=== PATIENT | male | born 1985 | race Caucasian/White ===

== ENCOUNTER 2018-09-09 13:54 | Emergency (ER) | payer SELFPAY ==
[~2018-09-09] VITALS: Ht 175.3 cm; Wt 85.5 kg
[2018-09-09 13:59] VITALS: Ht 175.3 cm; Wt 85.5 kg
[2018-09-09] MEDS ORDERED: VOLTAREN75 MG PO (14:41)
[2018-09-09] MEDS ORDERED: VIBRAMYCIN 100100 MG PO (14:41)
[2018-09-09 15:03] VITALS: BP 134/87
== END 2018-09-09 15:03 | disposition home or self-care (01) ==
LOC: D.ER 13:54
DX: L03.211 Cellulitis of face (principal)